=== PATIENT | female | born 1995 | race Caucasian/White ===

== ENCOUNTER 2017-08-27 18:35 | Emergency (ER) | payer MEDICAID ==
[~2017-08-27] VITALS: Ht 167.6 cm; Wt 93.9 kg
[2017-08-27 18:39] VITALS: BP 132/78
--- NOTE | 2017-08-27 18:42 | NUR ---
Note robert in [facility] - 08/27/17 at 1848 by PAULA PT AMBULATED TO ROOM 4. WYATT MAJOR GIVEN REPORT Addendum: 08/27/17 at 1843 by PAULA Amendment robert in [facility] - 08/27/17 at 1848 by PAULA ROOM 5*
--- NOTE | 2017-08-27 18:42 | NUR ---
PT AMBULATED TO RM 5, REPORT GIVEN TO ANDREA MAJOR
[2017-08-27] MEDS ORDERED: HYDROcodone/APAP 5/325 MG 1 TAB TAB PO ONE (18:50)
[2017-08-27] MEDS ORDERED: IBUPROFEN 600 MG TAB PO ONE (18:50)
--- NOTE | 2017-08-27 18:50 | NUR ---
21 YO F BIB SELF W/ C/O 7/10 THROBBING PAIN IN R HAND, 3RD DIGIT S/P OPENING A DOOR. FINGER IS BRUISED AND SWOLLEN. CMS INTACT. NO BLEEDING. PT AAOX4. GCS 15. RR EVEN AND UNLABORED. LUNG SWEENEY CLEAR. ER MD GARCIA NOTIFIED. PT NEEDS MET. SAFETY PRECAUTIONS IN PLACE. WILL CONTINUE TO MONITOR.
--- NOTE | 2017-08-27 19:03 | NUR ---
XRAY AT BEDSIDE AT THIS TIME.
--- NOTE | 2017-08-27 19:09 | NUR ---
TRANSFER OF CARE AT THIS TIME, REPORT GIVEN TO PEDRITO ATKINS
--- NOTE | 2017-08-27 19:10 | NUR ---
REPORT RECIEVED FROM DAY NURSE, PT IN STABEL CONDITION. NO S/S OF DISTRESS NOTED. VSS
--- NOTE | 2017-08-27 19:36 | NUR ---
Dr. Ceballos evaluating patient at bedside.
--- NOTE | 2017-08-27 20:04 | NUR ---
PT SITTING IN THE CHAIR COMFORTABLY AT THIS TIME. NO S/S OF DISTRESS NOTED AT THIS TIME. VSS
--- NOTE | 2017-08-27 20:26 | NUR ---
Patient discharged BY DR. LOBO with v/s stable. Written and verbal after care instructions given and explained. Patient alert, oriented and verbalized understanding of instructions. Ambulatory with steady gait. All questions addressed prior to discharge. ID band removed. Patient advised to follow up with PMD. Rx of NAPROSYN 500MG given. Patient educated on indication of medication including possible reaction and side effects. Opportunity to ask questions provided and answered.
[2017-08-27 20:29] VITALS: BP 126/72
== END 2017-08-27 20:26 | disposition home or self-care (01) ==
LOC: MED 18:35
DX: S62.613A Displaced fracture of proximal phalanx of left middle finger, initial encounter for closed fracture (principal); W23.0XXA Caught, crushed, jammed, or pinched between moving objects, initial encounter; Y93.89 Activity, other specified; Y92.098 Other place in other non-institutional residence as the place of occurrence of the external cause; Y99.8 Other external cause status
CPT/HCPCS: 29125; 73140; 81002; 81025; 99284; Q0092